=== PATIENT | female | born 1985 | race Caucasian/White ===

== ENCOUNTER → 2021-10-29 | Outpatient (CLI) | payer OTHER ==
--- NOTE | 2021-10-29 11:48 | Diagnostic Imaging Report ---
PROCEDURE: Pelvic comp/transvaginal sonogram. TECHNIQUE: Complete transabdominal and transvaginal pelvic ultrasound was performed. In addition, limited pelvic Doppler was performed. INDICATION: Pelvic pain. Uterus is retroverted measuring 8.6 x 4.7 x 6.7 cm. Endometrium is 5 mm in thickness. IUD appears to be appropriately centered in the endometrial canal. No myometrial mass is detected. Right ovary cannot be visualized due to overlying bowel gas. Left ovary also is difficult to see. The margins of the ovary were indistinct. There is a septated cystic-appearing mass in the left adnexa. There is also an associated increased echogenicity and shadowing in the left adnexa and the possibility of a dermoid cannot be entirely excluded. No free fluid is identified. IMPRESSION: 1. IUD is appropriately centered in the endometrial canal. 2. Nonvisualized right ovary. 3. Poorly visualized left ovary with indistinct margins. There are areas of increased echogenicity and dirty shadowing, raising question of a fat-containing mass such as a dermoid. There is also adjacent septated cystic-appearing structure which could represent a hemorrhagic cyst. CT would be useful for further characterization. Dictated by: Dictated on workstation # [id number]
== END ==
LOC: RAD 11:00
PROVIDERS: ATTEND Physician Assistant
DX: R10.2 Pelvic and perineal pain (principal); Z97.5 Presence of (intrauterine) contraceptive device
CPT/HCPCS: 76830; 76856

== ENCOUNTER → 2021-11-10 | Outpatient (CLI) | payer OTHER ==
[~2021-11-10] MED LIST: CATHETER FLUSH 10 ML SYR IV PRN; HOLD METFORMIN - RECEIVED CONTRAST 20 ML VIAL IV SCH; IOHEXOL 350 MG/ML 100 ML (OMNIPAQUE 350) VIAL IV ONE; NS 100 ML (IVPB) BAG IV ONE
--- NOTE | 2021-11-10 10:09 | Diagnostic Imaging Report ---
INDICATION: Ovarian cyst. TECHNIQUE: Multiple contiguous axial images were obtained through the abdomen and pelvis after administration of intravenous contrast. Auto Exposure Controls were utilized during the CT exam to meet ALARA standards for radiation dose reduction. All CT scans use one or more of the following dose optimizing techniques: automated exposure control, MA and/or KvP adjustment based on patient size and exam type or iterative reconstruction. Comparison made with ultrasound of 10/29/2021 FINDINGS: The visualized portions of the lung bases show a small subpleural nodule in the left lower lobe, measuring about 4 mm in diameter. Nodules of this size do not require follow-up unless the patient is at high clinical risk. There is no pleural fluid or free intraperitoneal air. The liver, gallbladder, and spleen are normal. The adrenals and pancreas and kidneys appear normal. There is no retroperitoneal mass or adenopathy. There is no ascites or abnormal fluid collection. Visualized bowel loops show no sign of obstruction or focal bowel wall thickening. There is an IUD in place in the uterus. There is a large left adnexal lesion measuring about 9 x 7 cm. This lesion contains fatty elements as well as calcifications, suspicious for a dermoid lesion. There is a smaller fat density lesion in the right adnexal region measuring about 2.1 cm, also likely a dermoid lesion. There is no free fluid. There is no overt bony abnormality. IMPRESSION: There is a large left adnexal lesion measuring 9 x 7 cm, with fatty elements and calcifications, likely a dermoid lesion. There is a smaller 2.1 cm fat density lesion in the right adnexa which is also likely a dermoid lesion. IUD is in place in the uterus. There are no other significant findings. There is a tiny nodule in the left lung in the lower lobe, nodules of this size do not require follow-up unless the patient is at high clinical risk. Dictated by: Dictated on workstation # [id number]
== END ==
LOC: RAD 08:45
PROVIDERS: ATTEND Physician Assistant
DX: N83.8 Other noninflammatory disorders of ovary, fallopian tube and broad ligament (principal); Z97.5 Presence of (intrauterine) contraceptive device
CPT/HCPCS: 74177